=== PATIENT | male | born 1940 | race Hispanic/Latino ===

== ENCOUNTER 2017-04-23 22:08 | Emergency (ER) | payer SELFPAY ==
[~2017-04-23] VITALS: Ht 167.6 cm; Wt 100.0 kg
[2017-04-23] MEDS ORDERED: [UNRECOGNIZED DRUG - OTHER] PO (22:33)
[2017-04-23] MEDS ORDERED: PROTONIX40 M2 PO (22:33)
[2017-04-23] MEDS ORDERED: DUTASTERIDE PO (22:33)
[2017-04-23] MEDS ORDERED: CIPRO XR1000 MG PO (22:34)
[2017-04-23] MEDS ORDERED: ATROVENT H17 MCG/ACT (22:35)
[2017-04-23] MEDS ORDERED: AVAPRO300 MG PO (22:36)
[2017-04-23] MEDS ORDERED: AMLODIPINE5 MG PO (22:37)
[2017-04-23 23:41] LABS: HEMATOCRIT 40.8 % (39.0-50.0); HEMOGLOBIN 14.4 g/dl (14.0-18.0); IMMATURE GRANULOCYTES 0.9 % (0.0-1.0); MEAN CELL VOLUME 86.8 fL CALC (80.0-100.0); MEAN CORPUSCULAR HGB 30.6 pG CALC (26.0-32.0); MEAN CORPUSCULAR HGB CONC 35.3 g/L CALC (32.0-36.0); NEUT# 7.54 thou/uL (1.82-7.42); RED BLOOD COUNT 4.7 mill/uL (4.70-6.10); RED CELL DISTRI WIDTH 12.9 % (11.5-15.5)
[2017-04-23 23:48] LABS: ALBUMIN 4.7 g/dL (3.2-5.0); ALKALINE PHOSPHATASE 82 u/l (38-126); BILIRUBIN, TOTAL 0.8 mg/dL (0.0-1.4); BUN 31 mg/dL (8-23); BUN/CREATININE RATIO 18 (12-20 (CALC)); CALCIUM 9.8 mg/dL (8.4-10.2); CARBON DIOXIDE 15 mmol/l (22-30); CHLORIDE 89 mmol/l (95-108); CREATININE 1.7 mg/dL (0.7-1.3); GFR 39 ML/MIN (>=60 (CALC)); GFR FOR AFR.AMER. 47 ML/MIN (>=60 (CALC)); GLUCOSE 212 mg/dL (82-115); SGOT/AST 27 u/l (19-48); SGPT/ALT 28 u/l (11-66); TOTAL PROTEIN 7.8 g/dL (6.3-8.2)
[2017-04-23 23:54] LABS: ANION GAP 20 (6-22 (CALC)); POTASSIUM 7.5 mmol/l (3.5-5.1); SODIUM 116 mmol/l (137-146)
[2017-04-24] LABS: MYOGLOBIN 76 ng/mL (0 - 121)
[2017-04-24 00:40] LABS: URINE BILIRUBIN - DIPSTICK NEGATIVE (NEGATIVE); URINE BLOOD DIPSTICK LARGE (NEGATIVE); URINE CLARITY CLEAR; URINE COLOR YELLOW; URINE GLUCOSE - DIPSTICK NEGATIVE (NEGATIVE); URINE KETONE NEGATIVE (NEGATIVE); URINE PH 5.5 (4.5-8.0); URINE PROTEIN - DIPSTICK 100 mg/dL (NEG-TRACE); URINE SPECIFIC GRAVITY >=1.030; URINE UROBILINOGEN - DIPSTICK 0.2 E.U./dL (0.2)
[2017-04-24 00:42] LABS: URINE BACTERIA MODERATE hpf; URINE LEUK ESTERASE MODERATE (NEGATIVE); URINE NITRITE - DIPSTICK POSITIVE (Negative); URINE RBC TNTC RBC/hpf (0-5); URINE WBC 50-100 WBC/hpf (0-5)
[2017-04-24 02:01] VITALS: BP 136/63
== END 2017-04-24 02:30 | disposition short-term general hospital (02) | DRG 690 ==
LOC: ED 22:08
PROVIDERS: Emergency Medicine
DX: N39.0 Urinary tract infection, site not specified (principal); E87.1 Hypo-osmolality and hyponatremia; E87.5 Hyperkalemia; E87.8 Other disorders of electrolyte and fluid balance, not elsewhere classified; R10.33 Periumbilical pain; R06.02 Shortness of breath

== ENCOUNTER 2017-10-14 09:15 | Emergency (ER) | payer SELFPAY ==
[~2017-10-14] VITALS: Ht 167.6 cm; Wt 80.0 kg
[~2017-10-14 09:15] MED LIST: AMLODIPINE5 MG PO; ATROVENT H17 MCG/ACT; AVAPRO300 MG PO; CIPRO XR1000 MG PO; DUTASTERIDE PO; PROTONIX40 M2 PO; [UNRECOGNIZED DRUG - OTHER] PO
[2017-10-14 10:16] LABS: HEMATOCRIT 43.4 % (39.0-50.0); HEMOGLOBIN 14.3 g/dl (14.0-18.0); IMMATURE GRANULOCYTES 0.4 % (0.0-1.0); MEAN CELL VOLUME 85.1 fL CALC (80.0-100.0); MEAN CORPUSCULAR HGB CONC 32.9 g/L CALC (32.0-36.0); NEUT# 4.88 thou/uL (1.82-7.42); RED BLOOD COUNT 5.1 mill/uL (4.70-6.10); RED CELL DISTRI WIDTH 13.6 % (11.5-15.5)
[2017-10-14 10:38] LABS: ALBUMIN 3.9 g/dL (3.2-5.0); ALKALINE PHOSPHATASE 82 u/l (38-126); ANION GAP 15 (6-22 (CALC)); BILIRUBIN, TOTAL 0.7 mg/dL (0.0-1.4); BUN 12 mg/dL (8-23); BUN/CREATININE RATIO 10 (12-20 (CALC)); CALCIUM 9.3 mg/dL (8.4-10.2); CARBON DIOXIDE 25 mmol/l (22-30); CHLORIDE 105 mmol/l (95-108); CREATININE 1.2 mg/dL (0.7-1.3); GFR 59 ML/MIN (>=60 (CALC)); GFR FOR AFR.AMER. > 60 ML/MIN (>=60 (CALC)); GLUCOSE 274 mg/dL (82-115); POTASSIUM 4.5 mmol/l (3.5-5.1); SGOT/AST 16 u/l (19-48); SGPT/ALT 25 u/l (11-66); SODIUM 140 mmol/l (137-146); TOTAL PROTEIN 6.7 g/dL (6.3-8.2)
[2017-10-14 10:46] LABS: URINE BILIRUBIN - DIPSTICK NEGATIVE (NEGATIVE); URINE BLOOD DIPSTICK NEGATIVE (NEGATIVE); URINE CLARITY CLEAR; URINE COLOR YELLOW; URINE GLUCOSE - DIPSTICK 500 mg/dL (NEGATIVE); URINE KETONE NEGATIVE (NEGATIVE); URINE LEUK ESTERASE NEGATIVE (NEGATIVE); URINE NITRITE - DIPSTICK NEGATIVE (Negative); URINE PH 6.5 (4.5-8.0); URINE PROTEIN - DIPSTICK NEGATIVE (NEG-TRACE); URINE SPECIFIC GRAVITY <=1.005; URINE UROBILINOGEN - DIPSTICK 0.2 E.U./dL (0.2)
[2017-10-14] MEDS ORDERED: VENTOLIN HFA IN (10:55)
[2017-10-14] MEDS ORDERED: FINASTERIDE5 MG PO (10:59)
[2017-10-14] MEDS ORDERED: PROZAC10 MG PO (11:00)
[2017-10-14] MEDS ORDERED: LASIX 20 MG20 MG/TAB PO (11:00)
[2017-10-14] MEDS ORDERED: MIRTAZAPINE15 MG PO (11:01)
[2017-10-14] MEDS ORDERED: NOVOLIN N100 UNIT/1 SC (11:02)
[2017-10-14] MEDS ORDERED: SYMBICORT1 AE1 IN (11:03)
[2017-10-14] MEDS ORDERED: PROAIR HFA IN (11:03)
[2017-10-14] MEDS ORDERED: LIPITOR20 MG PO (11:04)
[2017-10-14] MEDS ORDERED: TAMSULOSIN0.4 MG PO (11:04)
[2017-10-14 11:13] VITALS: BP 198/86
== END 2017-10-14 11:13 | disposition home or self-care (01) | DRG 93 ==
LOC: ED 09:15
PROVIDERS: Emergency Medicine
DX: R20.0 Anesthesia of skin (principal)

== ENCOUNTER 2018-06-15 14:58 | Inpatient (IN) | payer OTHER ==
[~2018-06-15] VITALS: Ht 167.6 cm; Wt 101.3 kg
[~2018-06-15 14:58] MED LIST changes: +FINASTERIDE5 MG PO; +LASIX 20 MG20 MG/TAB PO; +LIPITOR20 MG PO; +MIRTAZAPINE15 MG PO; +NOVOLIN N100 UNIT/1 SC; +PROAIR HFA IN; +PROZAC10 MG PO; +SYMBICORT1 AE1 IN; +TAMSULOSIN0.4 MG PO; +VENTOLIN HFA IN
[2018-06-15 15:56] LABS: HEMOGLOBIN 14.8 g/dl (14.0-18.0); IMMATURE GRANULOCYTES 0.4 % (0.0-5.0); MEAN CELL VOLUME 83.2 fL CALC (80.0-100.0); MEAN CORPUSCULAR HGB 28.6 pG CALC (26.0-32.0); MEAN CORPUSCULAR HGB CONC 34.4 g/L CALC (32.0-36.0); NEUT# 5.66 thou/uL (1.82-7.42); RED BLOOD COUNT 5.17 mill/uL (4.70-6.10); RED CELL DISTRI WIDTH 14.6 % (11.5-15.5)
[2018-06-15 16:10] LABS: ALBUMIN 4.2 g/dL (3.2-5.0); ALKALINE PHOSPHATASE 101 u/l (38-126); BILIRUBIN, TOTAL 0.4 mg/dL (0.0-1.4); BUN 12 mg/dL (8-23); BUN/CREATININE RATIO 10 (12-20 (CALC)); CARBON DIOXIDE 19 mmol/l (22-30); CHLORIDE 97 mmol/l (95-108); CREATININE 1.1 mg/dL (0.7-1.3); GFR > 60 ML/MIN (>=60 (CALC)); GFR FOR AFR.AMER. > 60 ML/MIN (>=60 (CALC)); POTASSIUM 4.3 mmol/l (3.5-5.1); SGPT/ALT 30 u/l (11-66); TOTAL PROTEIN 7.6 g/dL (6.3-8.2)
[2018-06-15 16:24] LABS: ANION GAP 18 (6-22 (CALC)); SGOT/AST 31 u/l (19-48); SODIUM 130 mmol/l (137-146)
[2018-06-15 17:42] VITALS: BP 133/79
[2018-06-15 19:18] VITALS: BP 129/71
[2018-06-15 22:13] VITALS: BP 135/80
[2018-06-15 23:15] VITALS: BP 160/84
[2018-06-15 23:30] VITALS: BP 156/79
[2018-06-15 23:45] VITALS: BP 166/89
[2018-06-16] VITALS (18 sets, daily range): BP systolic 93–143; BP diastolic 54–88
[2018-06-16 05:09] LABS: HEMATOCRIT 44.3 % (39.0-50.0); HEMOGLOBIN 15.2 g/dl (14.0-18.0); MEAN CELL VOLUME 83.3 fL CALC (80.0-100.0); MEAN CORPUSCULAR HGB 28.6 pG CALC (26.0-32.0); MEAN CORPUSCULAR HGB CONC 34.3 g/L CALC (32.0-36.0); RED BLOOD COUNT 5.32 mill/uL (4.70-6.10); RED CELL DISTRI WIDTH 14.6 % (11.5-15.5)
[2018-06-16 05:18] LABS: ANION GAP 13 (6-22 (CALC)); BUN 12 mg/dL (8-23); BUN/CREATININE RATIO 11 (12-20 (CALC)); CARBON DIOXIDE 21 mmol/l (22-30); CHLORIDE 102 mmol/l (95-108); CREATININE 1.2 mg/dL (0.7-1.3); GFR 58 ML/MIN (>=60 (CALC)); GFR FOR AFR.AMER. > 60 ML/MIN (>=60 (CALC)); SODIUM 132 mmol/l (137-146)
[2018-06-16 09:19] LABS: CHOLESTEROL HDL RATIO 4.8 (<4.4 (CALC))
[2018-06-16 20:44] LABS: URINE BILIRUBIN - DIPSTICK NEGATIVE (NEGATIVE); URINE BLOOD DIPSTICK NEGATIVE (NEGATIVE); URINE COLOR YELLOW; URINE GLUCOSE - DIPSTICK >=1000 mg/dL (NEGATIVE); URINE KETONE NEGATIVE (NEGATIVE); URINE LEUK ESTERASE NEGATIVE (NEGATIVE); URINE NITRITE - DIPSTICK NEGATIVE (Negative); URINE PROTEIN - DIPSTICK NEGATIVE (NEG-TRACE); URINE UROBILINOGEN - DIPSTICK 0.2 E.U./dL (0.2)
[2018-06-16 20:52] LABS: URINE CLARITY CLEAR
[2018-06-17] VITALS (12 sets, daily range): BP systolic 106–170; BP diastolic 43–68
[2018-06-17 05:20] LABS: HEMATOCRIT 40.8 % (39.0-50.0); HEMOGLOBIN 14.2 g/dl (14.0-18.0); IMMATURE GRANULOCYTES 0.6 % (0.0-5.0); MEAN CELL VOLUME 82.3 fL CALC (80.0-100.0); MEAN CORPUSCULAR HGB 28.6 pG CALC (26.0-32.0); MEAN CORPUSCULAR HGB CONC 34.8 g/L CALC (32.0-36.0); NEUT# 7.87 thou/uL (1.82-7.42); RED BLOOD COUNT 4.96 mill/uL (4.70-6.10); RED CELL DISTRI WIDTH 14.5 % (11.5-15.5)
[2018-06-17 05:31] LABS: ANION GAP 16 (6-22 (CALC)); BUN 23 mg/dL (8-23); BUN/CREATININE RATIO 17 (12-20 (CALC)); CARBON DIOXIDE 19 mmol/l (22-30); CHLORIDE 97 mmol/l (95-108); CREATININE 1.3 mg/dL (0.7-1.3); GFR 53 ML/MIN (>=60 (CALC)); GFR FOR AFR.AMER. > 60 ML/MIN (>=60 (CALC)); SODIUM 127 mmol/l (137-146)
[2018-06-17 05:41] LABS: POTASSIUM 5.2 mmol/l (3.5-5.1)
[2018-06-18] VITALS (10 sets, daily range): BP systolic 106–182; BP diastolic 50–97
[2018-06-18 05:18] LABS: HEMATOCRIT 41.7 % (39.0-50.0); HEMOGLOBIN 14.5 g/dl (14.0-18.0); MEAN CELL VOLUME 82.7 fL CALC (80.0-100.0); MEAN CORPUSCULAR HGB 28.8 pG CALC (26.0-32.0); MEAN CORPUSCULAR HGB CONC 34.8 g/L CALC (32.0-36.0); RED BLOOD COUNT 5.04 mill/uL (4.70-6.10); RED CELL DISTRI WIDTH 14.5 % (11.5-15.5)
[2018-06-18 05:33] LABS: ANION GAP 17 (6-22 (CALC)); BUN 29 mg/dL (8-23); BUN/CREATININE RATIO 22 (12-20 (CALC)); CARBON DIOXIDE 19 mmol/l (22-30); CHLORIDE 96 mmol/l (95-108); CREATININE 1.3 mg/dL (0.7-1.3); GFR 53 ML/MIN (>=60 (CALC)); GFR FOR AFR.AMER. > 60 ML/MIN (>=60 (CALC)); SODIUM 127 mmol/l (137-146)
[2018-06-18 05:35] LABS: POTASSIUM 5.4 mmol/l (3.5-5.1)
[2018-06-19] VITALS (10 sets, daily range): BP systolic 130–161; BP diastolic 67–90
[2018-06-19 05:45] LABS: HEMATOCRIT 42.1 % (39.0-50.0); HEMOGLOBIN 14.8 g/dl (14.0-18.0); MEAN CELL VOLUME 83.4 fL CALC (80.0-100.0); MEAN CORPUSCULAR HGB 29.3 pG CALC (26.0-32.0); MEAN CORPUSCULAR HGB CONC 35.2 g/L CALC (32.0-36.0); RED BLOOD COUNT 5.05 mill/uL (4.70-6.10); RED CELL DISTRI WIDTH 14.6 % (11.5-15.5)
[2018-06-19 06:03] LABS: ANION GAP 13 (6-22 (CALC)); BUN 31 mg/dL (8-23); BUN/CREATININE RATIO 24 (12-20 (CALC)); CARBON DIOXIDE 23 mmol/l (22-30); CHLORIDE 101 mmol/l (95-108); CREATININE 1.3 mg/dL (0.7-1.3); GFR 53 ML/MIN (>=60 (CALC)); GFR FOR AFR.AMER. > 60 ML/MIN (>=60 (CALC)); POTASSIUM 4.9 mmol/l (3.5-5.1); SODIUM 133 mmol/l (137-146)
[2018-06-19 06:05] LABS: MAGNESIUM 2.3 mg/dL (1.6-2.3)
[2018-06-19 13:31] LABS: PROTHROMBIN TIME 10.8 SECONDS (9.0-12.5)
[2018-06-20] VITALS (18 sets, daily range): BP systolic 113–158; BP diastolic 49–86
[2018-06-20 05:16] LABS: HEMATOCRIT 44.7 % (39.0-50.0); HEMOGLOBIN 15.1 g/dl (14.0-18.0); IMMATURE GRANULOCYTES 1.4 % (0.0-5.0); MEAN CELL VOLUME 84.7 fL CALC (80.0-100.0); MEAN CORPUSCULAR HGB 28.6 pG CALC (26.0-32.0); MEAN CORPUSCULAR HGB CONC 33.8 g/L CALC (32.0-36.0); NEUT# 10.06 thou/uL (1.82-7.42); RED BLOOD COUNT 5.28 mill/uL (4.70-6.10); RED CELL DISTRI WIDTH 14.8 % (11.5-15.5)
[2018-06-20 05:29] LABS: PROTHROMBIN TIME 11.6 SECONDS (9.0-12.5)
[2018-06-20 05:35] LABS: ALBUMIN 3.9 g/dL (3.2-5.0); CREATININE 1.4 mg/dL (0.7-1.3); POTASSIUM 4.8 mmol/l (3.5-5.1)
[2018-06-21] VITALS (23 sets, daily range): BP systolic 101–169; BP diastolic 46–99
[2018-06-21 04:57] LABS: PROTHROMBIN TIME 14.9 SECONDS (9.0-12.5)
[2018-06-21 06:22] LABS: INTERNATIONAL NORMALIZED RATIO 1.3 RATIO (0.7-1.3)
[2018-06-21 06:53] LABS: TSH, 3RD GENERATION 0.08 uIU/mL (0.47 - 4.68)
[2018-06-22] VITALS (19 sets, daily range): BP systolic 103–176; BP diastolic 41–92
[2018-06-22 05:42] LABS: PROTHROMBIN TIME 26.8 SECONDS (9.0-12.5)
[2018-06-22 05:43] LABS: INTERNATIONAL NORMALIZED RATIO 2.4 RATIO (0.7-1.3)
[2018-06-23] VITALS (21 sets, daily range): BP systolic 101–189; BP diastolic 50–92
[2018-06-23 05:54] LABS: HEMATOCRIT 45.5 % (39.0-50.0); HEMOGLOBIN 15.7 g/dl (14.0-18.0); MEAN CELL VOLUME 83.2 fL CALC (80.0-100.0); MEAN CORPUSCULAR HGB 28.7 pG CALC (26.0-32.0); MEAN CORPUSCULAR HGB CONC 34.5 g/L CALC (32.0-36.0); RED BLOOD COUNT 5.47 mill/uL (4.70-6.10); RED CELL DISTRI WIDTH 14.4 % (11.5-15.5)
[2018-06-23 05:56] LABS: INTERNATIONAL NORMALIZED RATIO 2.2 RATIO (0.7-1.3); PROTHROMBIN TIME 24.7 SECONDS (9.0-12.5)
[2018-06-23 06:09] LABS: BUN 29 mg/dL (8-23); BUN/CREATININE RATIO 22 (12-20 (CALC)); CARBON DIOXIDE 25 mmol/l (22-30); CHLORIDE 102 mmol/l (95-108); CREATININE 1.3 mg/dL (0.7-1.3); GFR 53 ML/MIN (>=60 (CALC)); GFR FOR AFR.AMER. > 60 ML/MIN (>=60 (CALC)); MAGNESIUM 2.3 mg/dL (1.6-2.3); SODIUM 135 mmol/l (137-146)
[2018-06-23 06:21] LABS: ANION GAP 13 (6-22 (CALC)); POTASSIUM 5.2 mmol/l (3.5-5.1)
[2018-06-24] VITALS (10 sets, daily range): BP systolic 109–160; BP diastolic 42–77
[2018-06-24 05:30] LABS: HEMATOCRIT 45.8 % (39.0-50.0); HEMOGLOBIN 15.7 g/dl (14.0-18.0); MEAN CELL VOLUME 82.8 fL CALC (80.0-100.0); MEAN CORPUSCULAR HGB 28.4 pG CALC (26.0-32.0); MEAN CORPUSCULAR HGB CONC 34.3 g/L CALC (32.0-36.0); RED BLOOD COUNT 5.53 mill/uL (4.70-6.10); RED CELL DISTRI WIDTH 14.8 % (11.5-15.5)
[2018-06-24 05:39] LABS: CREATININE 1.4 mg/dL (0.7-1.3); POTASSIUM 4.3 mmol/l (3.5-5.1)
[2018-06-24 10:31] LABS: INTERNATIONAL NORMALIZED RATIO 1.8 RATIO (0.7-1.3); PROTHROMBIN TIME 20.6 SECONDS (9.0-12.5)
[2018-06-25] VITALS (10 sets, daily range): BP systolic 104–150; BP diastolic 49–71
[2018-06-25 05:21] LABS: INTERNATIONAL NORMALIZED RATIO 2.1 RATIO (0.7-1.3); PROTHROMBIN TIME 23.5 SECONDS (9.0-12.5)
[2018-06-25 05:25] LABS: CREATININE 1.5 mg/dL (0.7-1.3); POTASSIUM 4.2 mmol/l (3.5-5.1)
[2018-06-25] MEDS ORDERED: PREDNISONE10 MG PO (17:27)
[2018-06-25] MEDS ORDERED: LOPRESSOR25 MG PO (17:27)
[2018-06-25] MEDS ORDERED: IPRATROPIU0.5 MG/3 M IN (17:27)
[2018-06-25] MEDS ORDERED: FINASTERIDE5 MG PO (17:27)
[2018-06-25] MEDS ORDERED: NOVOLIN N100 UNIT/1 SC (17:27)
[2018-06-25] MEDS ORDERED: MIRTAZAPINE15 MG PO (17:27)
[2018-06-25] MEDS ORDERED: LASIX 20 MG TAB20 MG PO (17:27)
[2018-06-25] MEDS ORDERED: TAMSULOSIN0.4 MG PO (17:27)
[2018-06-25] MEDS ORDERED: VENTOLIN HFA IN (17:27)
[2018-06-25] MEDS ORDERED: COUMADIN3 MG PO (17:27)
[2018-06-25] MEDS ORDERED: SYMBICORT1 AE1 IN (17:27)
[2018-06-25] MEDS ORDERED: LIPITOR20 MG PO (17:27)
[2018-06-25] MEDS ORDERED: CORDARONE/200 MG/TAB PO (17:27)
[2018-06-25] MEDS ORDERED: PROTONIX40 M2 PO (17:27)
== END 2018-06-25 19:30 | disposition home or self-care (01) | DRG 191 ==
LOC: ED 14:58 → ED-I 16:18 → ED 16:40 → MS2 16:41 → ICU 22:57 → MS2 06-18 13:09 → ICU 06-19 18:25
PROVIDERS: Emergency Medicine; Internal Medicine Nephrology; Nurse Practitioner; Nurse Practitioner Family; ADMIT Internal Medicine; ATTEND Internal Medicine
DX: J44.1 Chronic obstructive pulmonary disease with (acute) exacerbation (principal); E87.1 Hypo-osmolality and hyponatremia; I47.1 Supraventricular tachycardia; I16.0 Hypertensive urgency; I48.91 Unspecified atrial fibrillation; K56.41 Fecal impaction; K21.9 Gastro-esophageal reflux disease without esophagitis; N40.0 Benign prostatic hyperplasia without lower urinary tract symptoms; E78.5 Hyperlipidemia, unspecified; E11.22 Type 2 diabetes mellitus with diabetic chronic kidney disease; I12.9 Hypertensive chronic kidney disease with stage 1 through stage 4 chronic kidney disease, or unspecified chronic kidney disease; N18.2 Chronic kidney disease, stage 2 (mild); E66.9 Obesity, unspecified; Z68.36 Body mass index [BMI] 36.0-36.9, adult; Z86.73 Personal history of transient ischemic attack (TIA), and cerebral infarction without residual deficits; Z87.891 Personal history of nicotine dependence; Z85.46 Personal history of malignant neoplasm of prostate; E87.5 Hyperkalemia; Z79.4 Long term (current) use of insulin
CPT/HCPCS: J0282; J1650

== ENCOUNTER 2018-06-30 00:25 | Emergency (ER) | payer SELFPAY ==
[~2018-06-30] VITALS: Ht 167.6 cm; Wt 103.6 kg
[~2018-06-30 00:25] MED LIST changes: +CORDARONE/200 MG/TAB PO; +COUMADIN3 MG PO; +IPRATROPIU0.5 MG/3 M IN; +LASIX 20 MG TAB20 MG PO; +LOPRESSOR25 MG PO; +PREDNISONE10 MG PO
[2018-06-30 01:11] LABS: MEAN CELL VOLUME 84.8 fL CALC (80.0-100.0); MEAN CORPUSCULAR HGB 28.9 pG CALC (26.0-32.0); NEUT# 11.02 thou/uL (1.82-7.42); RED BLOOD COUNT 4.61 mill/uL (4.70-6.10); RED CELL DISTRI WIDTH 15.4 % (11.5-15.5)
[2018-06-30 01:13] LABS: HEMATOCRIT 39.1 % (39.0-50.0); HEMOGLOBIN 13.3 g/dl (14.0-18.0)
[2018-06-30 01:23] LABS: ALBUMIN 3.5 g/dL (3.2-5.0); BILIRUBIN, TOTAL 0.4 mg/dL (0.0-1.4); CREATININE 1.7 mg/dL (0.7-1.3); TOTAL PROTEIN 6.1 g/dL (6.3-8.2)
[2018-06-30 01:24] LABS: POTASSIUM 5.5 mmol/l (3.5-5.1)
[2018-06-30 01:50] VITALS: BP 155/70
== END 2018-06-30 01:50 | disposition home or self-care (01) | DRG 305 ==
LOC: ED 00:25
PROVIDERS: Emergency Medicine
DX: I10 Essential (primary) hypertension (principal); E11.9 Type 2 diabetes mellitus without complications; J45.909 Unspecified asthma, uncomplicated; Z85.46 Personal history of malignant neoplasm of prostate

== ENCOUNTER 2018-07-01 22:01 | Observation (INO) | payer MEDICAID ==
[~2018-07-01] VITALS: Ht 167.6 cm; Wt 103.2 kg
[2018-07-01 22:42] LABS: HEMATOCRIT 42.1 % (39.0-50.0); HEMOGLOBIN 14.6 g/dl (14.0-18.0); IMMATURE GRANULOCYTES 2.7 % (0.0-5.0); MEAN CELL VOLUME 82.7 fL CALC (80.0-100.0); MEAN CORPUSCULAR HGB 28.7 pG CALC (26.0-32.0); MEAN CORPUSCULAR HGB CONC 34.7 g/L CALC (32.0-36.0); NEUT# 10.38 thou/uL (1.82-7.42); RED BLOOD COUNT 5.09 mill/uL (4.70-6.10)
--- NOTE | 2018-07-01 22:42 | NUR ---
DR UNGER NOTIFIED OF BP. HOLD CATAPRES FOR NOW. PT TO XRAY VIA W/C.
[2018-07-01 22:58] LABS: ALBUMIN 3.9 g/dL (3.2-5.0); ALKALINE PHOSPHATASE 86 u/l (38-126); ANION GAP 19 (6-22 (CALC)); BILIRUBIN, TOTAL 0.5 mg/dL (0.0-1.4); BUN 26 mg/dL (8-23); BUN/CREATININE RATIO 19 (12-20 (CALC)); CARBON DIOXIDE 22 mmol/l (22-30); CHLORIDE 94 mmol/l (95-108); CREATININE 1.3 mg/dL (0.7-1.3); GFR 53 ML/MIN (>=60 (CALC)); GFR FOR AFR.AMER. > 60 ML/MIN (>=60 (CALC)); SGOT/AST 23 u/l (19-48); SGPT/ALT 44 u/l (11-66); SODIUM 130 mmol/l (137-146); TOTAL PROTEIN 6.9 g/dL (6.3-8.2)
[2018-07-01 23:00] LABS: POTASSIUM 5.2 mmol/l (3.5-5.1)
[2018-07-01 23:10] LABS: MYOGLOBIN 74 ng/mL (0 - 121)
[2018-07-01 23:22] LABS: INTERNATIONAL NORMALIZED RATIO 2.4 RATIO (0.7-1.3); PROTHROMBIN TIME 26.8 SECONDS (9.0-12.5)
[2018-07-02] VITALS (7 sets, daily range): BP systolic 113–192; BP diastolic 43–81
--- NOTE | 2018-07-02 | NUR ---
DR TO BEDSIDE TO ADVISE OF PLAN. FAMILY AT BEDSIDE. PT RESTING. NAD. VSS.
--- NOTE | 2018-07-02 01:33 | NUR ---
FAMILY HOME. REPORT TO LA MAYORGA.
--- NOTE | 2018-07-02 01:38 | NUR ---
TO FLOOR WITHOUT INCIDENT. FAMILY BACK TO GO TO FLOOR WITH PT. VSS. CLOUD.
--- NOTE | 2018-07-02 01:40 | NUR ---
RECEIVED FROM ER VIA STRETCHER ACCOMPANIED BY ER NURSE, AMBULATING TO STANDING SCALE THEN TO BED WITH STANDBY ASSISTANCE, STEADY GAIT. A/O X3, RESPIRATIONS EVEN AND UNLABORED ON RA, LUNG SOUNDS CLEAR WITH CRACKLES IN THE BASES BILAT. B/P 192/81, HR 65, CATAPRESS 0.2MG PO PROVIDED AT 0201 PER JAN. PT'S DAUGHTERS AT BED SIDE, STATE THEY BROUGHT PT TO ER DUE TO SEVEN BLOOD PRESSURE AND SOB, PT ADMITS TO FEELING WEAK AND SHAKY PRIOR TO ARRIVING TO ER, DENIES FEELING WEAK OR SHAKY AT THIS TIME. TELE IN PLACE READING SR PER ER. ORIENTED TO BED CONTROLS AND CALL LIGHT. WILL CONTINUE TO MONITOR.
--- NOTE | 2018-07-02 03:30 | NUR ---
RESTING ON LEFT SIDE WITH EYES CLOSED, RESPIRITIONS EVEN AND UNLABORED. B/P 113/43, HR 56. FAMILY AT BED SIDE. CALL LIGHT IN RECH.
--- NOTE | 2018-07-02 07:00 | NUR ---
BEDSIDE REPORT RECEIVED BY EULALIO. PT IS SLEEPING ON HIS RIGHT SIDE WITH NO S/S OF DISTRESS NOTED. DAUGHTER IN ROOM AND CALL LIGHT IN REACH.
--- NOTE | 2018-07-02 08:00 | NUR ---
ASSESSMENT DONE. TELE IN PLACE . LUNG SOUND CLEAR/CRACKLES. PT DENIES PAIN. PT STATED THAT HE JUST FEELS TIRED. PT IS A&O X3. #20 RAC THAT APPEAR HEALTHY. PT DENIES NEEDS AT THIS TIME. SAFETY PRECAUTIONS REINFORCED AND CALL LIGHT IN REACH.
--- NOTE | 2018-07-02 12:10 | NUR ---
PT IS SITTING IN THE SIDE OF THE BED EATING LUNCH. PT DENIES NEEDS AT THIS TIME. DAUGHTER IN ROOM. CALL LIGHT IN REACH.
--- NOTE | 2018-07-02 16:00 | NUR ---
PT IS SITTING IN THE SIDE OF THE BED VISITING WITH DAUGHTER IN ROOM. PT DENIES PAIN AT THIS TIME. PT DENIES NEEDS AT THIS TIME. CALL LIGHT IN REACH.
--- NOTE | 2018-07-02 19:00 | NUR ---
RECEIVED CHANGE OF SHIFT REPORT FROM LA NATHAN. PT ALERT AND ORIENTED X 3 AND SITTING UP IN BED. FAMILY AT BEDSIDE. DENIES PAIN AND DISCOMFORT. NO APPARENT ACUTE DISTRESS NOTED AT THIS TIME. WILL CONTINUE TO MONITOR.
--- NOTE | 2018-07-03 | NUR ---
PT RESTING QUIETLY WITH EYES CLOSED AND APPEARS TO BE ASLEEP. RESP EVEN AND NON-LABORED. NO APPARENT ACUTE DISTRESS NOTED. WILL CONTINUE TO MONITOR.
--- NOTE | 2018-07-03 01:00 | NUR ---
PATIENT CALLED AND STATED THAT HE'S FEELING "SHAKY". CHECKED BLOOD SUGAR LEVEL BY FINGERSTICK. RESULT WAS 61 MG/DL. OJ, KIERSTEN CRACKERS, AND MILK PROVIDED. WILL CONTINUE TO MONITOR/
--- NOTE | 2018-07-03 04:00 | NUR ---
PATIENT SLEPT WELL DURING THE NIGHT. NO APPARENT ACUTE CHANGES NOTED IN PT'S CONDITION.
[2018-07-03 05:19] LABS: HEMATOCRIT 39.6 % (39.0-50.0); HEMOGLOBIN 13.8 g/dl (14.0-18.0); MEAN CELL VOLUME 82.8 fL CALC (80.0-100.0); MEAN CORPUSCULAR HGB 28.9 pG CALC (26.0-32.0); MEAN CORPUSCULAR HGB CONC 34.8 g/L CALC (32.0-36.0); RED BLOOD COUNT 4.78 mill/uL (4.70-6.10); RED CELL DISTRI WIDTH 14.8 % (11.5-15.5)
[2018-07-03 05:38] LABS: ANION GAP 16 (6-22 (CALC)); BUN 26 mg/dL (8-23); BUN/CREATININE RATIO 21 (12-20 (CALC)); CARBON DIOXIDE 21 mmol/l (22-30); CHLORIDE 97 mmol/l (95-108); CREATININE 1.2 mg/dL (0.7-1.3); GFR 58 ML/MIN (>=60 (CALC)); GFR FOR AFR.AMER. > 60 ML/MIN (>=60 (CALC)); MAGNESIUM 1.9 mg/dL (1.6-2.3); SODIUM 130 mmol/l (137-146)
[2018-07-03 05:47] LABS: POTASSIUM 4.1 mmol/l (3.5-5.1)
--- NOTE | 2018-07-03 06:57 | NUR ---
REPORT RECIVED BY JOE. PT IS SLEEPING ON HIS RIGHT SIDE WITH NO S/S OF DISTRESS NOTED. DAUGHTER IN ROOM. CALL LIGHT IN REACH.
[2018-07-03 08:24] LABS: INTERNATIONAL NORMALIZED RATIO 2.2 RATIO (0.7-1.3); PROTHROMBIN TIME 24.8 SECONDS (9.0-12.5)
--- NOTE | 2018-07-03 08:30 | NUR ---
PT STATED THAT HE FEELS SOB O2 OBTAIN READING 94% IN ROOM AIR. ELEVATED PT HEAD OF THE BED. CALLED FOR A NEB TREATMENT. ASSESSMENT DONE. LUNGS SOUND WHEEZES. TELE IN PLACE. PT HAS A NON-PRODUCTIVE COUGH. PT DENIES PAIN AT THIS TIME. #20 RAC THAT APPEAR HEALTHY. DAUGHTER IN ROOM. PT DENIES ANY OTHER NEEDS AT THIS TIME. SAFETY PRECAUTIONS REINFORCED AND CALL LIGHT IN REACH.
[2018-07-03 08:50] VITALS: BP 180/80
--- NOTE | 2018-07-03 10:52 | NUR ---
PT IS SITTING IN THE SIDE OF THE BED. DR. GOINS AT BEDSIDE TO ASSESS PT. NOTIFIED DR. MICHELLE THAT PT BP IS 180/84 AND GIVEN APRESOLINE SEE EMAR. ALSO, THAT PT FELT SOB EARLIER TODAY. STATED WILL REVIEW CHART. DAUGHTER IN ROOM. CALL LIGHT IN REACH.
[2018-07-03 10:54] VITALS: BP 180/84
--- NOTE | 2018-07-03 11:56 | NUR ---
CALLED DR. MICHELLE RE: PT FEELING SOB/WHEEZES. O2 IS 94% AT ROOM AIR. ORDERS RECEIVED.
[2018-07-03 12:41] VITALS: BP 110/42
--- NOTE | 2018-07-03 14:42 | NUR ---
PT IS SITTING IN THE SIDE OF THE BED WITH NO S/S OF DISTRESS NOTED. PT STATED HIS BREATHING IS BETTER. PT DENIES NEEDS AT THIS TIME. CALL LIGHT IN REACH. DAUGHTER IN ROOM.
--- NOTE | 2018-07-03 16:02 | NUR ---
PT IS RESTING IN BED AND DENIES NEEDS AT THIS TIME. TELE IN PLACE. CALL LIGHT IN REACH.
[2018-07-03 16:52] VITALS: BP 168/78
[2018-07-03 19:31] VITALS: BP 155/73
--- NOTE | 2018-07-03 19:50 | NUR ---
PT UP SITTING ON SIDE OF BED. RESP EVEN AND UNLABORED. PT DENIES PAIN. TELE ON. LUNGS CLEAR/DIMINISHED BILAT. ABD SOFT, ACTIVE BOWEL SOUNDS. PEDAL PULSES PALPATED BILAT. IV LFA PATENT; FLUSHED WITHOUT DIFFICULTY. FAMILY AT BEDSIDE. FREQUENT ROUNDS MADE. CALL LIGHT WITHIN REACH.
--- NOTE | 2018-07-04 00:15 | NUR ---
NO DISTRESS NOTED, PT SLEEPING WITH EYES CLOSED. RESP EVEN AND UNLABORED. TELE ON. FAMILY AT BEDSIDE. CALL LIGHT WITHIN REACH.
[2018-07-04 00:30] VITALS: BP 140/65
--- NOTE | 2018-07-04 04:15 | NUR ---
PT SITTING ON SIDE OF BED. PT DENIES PAIN. RESP EVEN AND UNLABORED. ASSESSMENT UNCHANGED. TELE ON. CALL LIGHT WITHIN REACH.
[2018-07-04 04:24] VITALS: BP 165/78
[2018-07-04 05:20] VITALS: BP 149/62
[2018-07-04 05:45] LABS: INTERNATIONAL NORMALIZED RATIO 2.6 RATIO (0.7-1.3); PROTHROMBIN TIME 29.4 SECONDS (9.0-12.5)
[2018-07-04 08:00] VITALS: BP 159/65
--- NOTE | 2018-07-04 09:00 | NUR ---
PT AWAKE, ALERT, ORIENTED X 3. FAMILY AT BEDSIDE MUCH OF THE TIME, HELPFUL IN HIS CARE. LUNGS ARE CLEAR. PT OOB FOR SHOWER THIS AM. MONITOR CONTINUES TO SHOW NORMAL SINUS RHYTHM. NO COMPLAINTS, NO DISTRESS.
[2018-07-04 11:22] VITALS: BP 174/77
[2018-07-04] MEDS ORDERED: DOXYCYCL HYC100 MG PO (13:05)
[2018-07-04] MEDS ORDERED: AMLODIPINE BESYL5 MG PO (13:06)
[2018-07-04] MEDS ORDERED: MEDDOSEPAK PO (13:07)
[2018-07-04] MEDS ORDERED: HYDRALAZINE50 MG PO (13:17)
--- NOTE | 2018-07-04 13:48 | NUR ---
PT HAS BEEN SEEN BY DR MICHELLE TODAY, PLAN IS TO DISCHARGE PT HOME. PT FEELS THAT HE WILL DO WELL THERE, HAS PLENTY OF HELP FROM HIS DAUGHTERS.
--- NOTE | 2018-07-04 14:58 | NUR ---
PT LEAVES [facility] AT THIS TIME VIA WHEELCHAIR TO LOBBY. DAUGHTER ROBERTO RECEIVED DISCHARGE INSTRUCTIONS FOR HER FATHER, VERBALIZED UNDERSTANDING OF SAME. PT LEAVES IN STABLE CONDITION, RXs X 4 IN HAND. PT AWARE OF HOME HEALTH VISIT TOMORROW AND PHONE CALL FRIDAY FROM [facility] FOR FURTHER DISCUSSION OF HOME HEALTH SERVICES.
== END 2018-07-04 15:00 | disposition home health service (06) ==
LOC: ED 22:01 → ED-I 07-02 00:50 → ED 07-02 01:17 → MS2 07-02 01:18
PROVIDERS: Emergency Medicine; Nurse Practitioner Family; ADMIT Internal Medicine; ATTEND Internal Medicine
DX: J44.1 Chronic obstructive pulmonary disease with (acute) exacerbation (principal); J44.0 Chronic obstructive pulmonary disease with (acute) lower respiratory infection; J18.9 Pneumonia, unspecified organism; I16.0 Hypertensive urgency; I11.0 Hypertensive heart disease with heart failure; I50.9 Heart failure, unspecified; E87.1 Hypo-osmolality and hyponatremia; E87.5 Hyperkalemia; I48.0 Paroxysmal atrial fibrillation; E11.9 Type 2 diabetes mellitus without complications; E78.5 Hyperlipidemia, unspecified; Z79.01 Long term (current) use of anticoagulants; Z85.46 Personal history of malignant neoplasm of prostate; Z87.891 Personal history of nicotine dependence
CPT/HCPCS: G0378

== ENCOUNTER 2018-07-09 09:37 | Emergency (ER) | payer SELFPAY ==
[~2018-07-09] VITALS: Ht 167.6 cm; Wt 100.0 kg
[~2018-07-09 09:37] MED LIST changes: +AMLODIPINE BESYL5 MG PO; +DOXYCYCL HYC100 MG PO; +HYDRALAZINE50 MG PO; +MEDDOSEPAK PO
[2018-07-09 10:14] LABS: HEMATOCRIT 41.8 % (39.0-50.0); HEMOGLOBIN 14.5 g/dl (14.0-18.0); IMMATURE GRANULOCYTES 0.6 % (0.0-5.0); MEAN CELL VOLUME 83.9 fL CALC (80.0-100.0); MEAN CORPUSCULAR HGB 29.1 pG CALC (26.0-32.0); MEAN CORPUSCULAR HGB CONC 34.7 g/L CALC (32.0-36.0); NEUT# 11.03 thou/uL (1.82-7.42); RED BLOOD COUNT 4.98 mill/uL (4.70-6.10); RED CELL DISTRI WIDTH 15.6 % (11.5-15.5)
[2018-07-09] MEDS ORDERED: MICRO-K10 MEQ PO (10:19)
[2018-07-09] MEDS ORDERED: FLUOXETINE10 M2 PO (10:19)
[2018-07-09] MEDS ORDERED: VITAMIN B121000 MCG PO (10:20)
[2018-07-09] MEDS ORDERED: VITAMIN D22000 UNIT PO (10:21)
[2018-07-09 10:34] LABS: ALKALINE PHOSPHATASE 69 u/l (38-126); ANION GAP 18 (6-22 (CALC)); BILIRUBIN, TOTAL 0.6 mg/dL (0.0-1.4); BUN 46 mg/dL (8-23); BUN/CREATININE RATIO 27 (12-20 (CALC)); CARBON DIOXIDE 21 mmol/l (22-30); CHLORIDE 99 mmol/l (95-108); CREATININE 1.7 mg/dL (0.7-1.3); GFR 39 ML/MIN (>=60 (CALC)); GFR FOR AFR.AMER. 47 ML/MIN (>=60 (CALC)); POTASSIUM 4.8 mmol/l (3.5-5.1); SGOT/AST 21 u/l (19-48); SGPT/ALT 39 u/l (11-66); SODIUM 133 mmol/l (137-146); TOTAL PROTEIN 6.8 g/dL (6.3-8.2)
[2018-07-09 10:46] LABS: MYOGLOBIN 135 ng/mL (0 - 121)
[2018-07-09 11:42] LABS: URINE BILIRUBIN - DIPSTICK NEGATIVE (NEGATIVE); URINE BLOOD DIPSTICK NEGATIVE (NEGATIVE); URINE CLARITY CLEAR; URINE COLOR YELLOW; URINE GLUCOSE - DIPSTICK NEGATIVE (NEGATIVE); URINE KETONE NEGATIVE (NEGATIVE); URINE LEUK ESTERASE NEGATIVE (NEGATIVE); URINE NITRITE - DIPSTICK NEGATIVE (Negative); URINE PH 5.5 (4.5-8.0); URINE PROTEIN - DIPSTICK NEGATIVE (NEG-TRACE); URINE UROBILINOGEN - DIPSTICK 0.2 E.U./dL (0.2)
[2018-07-09 15:19] VITALS: BP 172/78
== END 2018-07-09 15:19 | disposition short-term general hospital (02) | DRG 192 ==
LOC: ED 09:37
PROVIDERS: Emergency Medicine
DX: J44.1 Chronic obstructive pulmonary disease with (acute) exacerbation (principal); E11.9 Type 2 diabetes mellitus without complications; I10 Essential (primary) hypertension; I48.91 Unspecified atrial fibrillation; Z85.46 Personal history of malignant neoplasm of prostate

== ENCOUNTER 2019-02-02 22:52 | Observation (INO) | payer OTHER ==
[~2019-02-02] VITALS: Ht 167.6 cm; Wt 103.1 kg
[~2019-02-02 22:52] MED LIST changes: +FLUOXETINE10 M2 PO; +MICRO-K10 MEQ PO; +VITAMIN B121000 MCG PO; +VITAMIN D22000 UNIT PO
--- NOTE | 2019-02-02 22:55 | NUR ---
TO TX ROOM VIA W/C
[2019-02-02 23:33] LABS: HEMOGLOBIN 15.1 g/dl (14.0-18.0); IMMATURE GRANULOCYTES 0.4 % (0.0-5.0); MEAN CELL VOLUME 85.6 fL CALC (80.0-100.0); MEAN CORPUSCULAR HGB 27.5 pG CALC (26.0-32.0); MEAN CORPUSCULAR HGB CONC 32.1 g/L CALC (32.0-36.0); NEUT# 5.13 thou/uL (1.82-7.42); RED BLOOD COUNT 5.49 mill/uL (4.70-6.10); RED CELL DISTRI WIDTH 16.7 % (11.5-15.5)
--- NOTE | 2019-02-02 23:47 | NUR ---
BREATHING IMPROVED MORE COMFORTABLE.
[2019-02-02 23:49] LABS: ALBUMIN 4.7 g/dL (3.2-5.0); ANION GAP 18 (6-22 (CALC)); BILIRUBIN, TOTAL 0.6 mg/dL (0.0-1.4); BUN 20 mg/dL (8-23); BUN/CREATININE RATIO 11 (12-20 (CALC)); CARBON DIOXIDE 24 mmol/l (22-30); CHLORIDE 98 mmol/l (95-108); CREATININE 1.7 mg/dL (0.7-1.3); GFR 39 ML/MIN (>=60 (CALC)); GFR FOR AFR.AMER. 47 ML/MIN (>=60 (CALC)); SGOT/AST 30 u/l (19-48); SODIUM 134 mmol/l (137-146)
[2019-02-02 23:51] LABS: ALKALINE PHOSPHATASE 154 u/l (38-126)
[2019-02-03] VITALS (7 sets, daily range): BP systolic 128–187; BP diastolic 63–90
[2019-02-03 00:01] LABS: MYOGLOBIN 100 ng/mL (0 - 121)
[2019-02-03 00:26] LABS: PROTHROMBIN TIME 20.7 SECONDS (9.0-12.5)
[2019-02-03 01:10] LABS: URINE BILIRUBIN - DIPSTICK NEGATIVE (NEGATIVE); URINE BLOOD DIPSTICK NEGATIVE (NEGATIVE); URINE COLOR YELLOW; URINE GLUCOSE - DIPSTICK >=1000 mg/dL (NEGATIVE); URINE KETONE NEGATIVE (NEGATIVE); URINE LEUK ESTERASE NEGATIVE (NEGATIVE); URINE NITRITE - DIPSTICK NEGATIVE (Negative); URINE PROTEIN - DIPSTICK NEGATIVE (NEG-TRACE); URINE SPECIFIC GRAVITY <=1.005; URINE UROBILINOGEN - DIPSTICK 0.2 E.U./dL (0.2)
--- NOTE | 2019-02-03 01:12 | NUR ---
Admission Note Report Given to: LA TRUJILLO Transported by: Wheelchair X Stretcher Transported with: X Nurse Transporter X Patent IV X O2 X Laborer Cheesemaking
--- NOTE | 2019-02-03 01:25 | NUR ---
PT. ARRIVED TO THE FLOOR VIA STRETCHER ACCOMPANIED BY ER NURSE AND DAUGHTER; DAUGHTER TO STAY THE NIGHT; PT. ABLE TO AMBULATE TO BED WITH MINIMAL ASST; ORIENTED ON POC, CALL LIGHT, AND ROOM; VERBALIZES UNDERSTANDING; VS OBTAINED AND INITIAL B/P ELEVATED AT SYSTOLIC 212; WILL REASSESS AFTER PT. RELAXES AND SETTLES DOWN; SPO2 ON RA 95%; APPLIED O2 @2LITERS/MIN PER NC PER ORDER; ADMISSION ASSESSMENT COMPLETED; PT. DENIES ANY PAIN; FRESH WATER AND PO FLUIDS OFFERED; CALL LIGHT IS IN REACH; INSTRUCTED TO CALL FOR ANY AND ALL NEEDS; WILL CONTINUE TO MONITOR.
--- NOTE | 2019-02-03 02:35 | NUR ---
0212- PT'S B/P 187/90; CALLED DR. UNGER AND NOTIFIED HIM OF THIS; ORDER RECEIVED FOR HYDRALAZINE; WILL ADMINISTER WHEN PROFILED; 023- B/P REASSESSED AND NOW IS 164/79 AND HR 71; MEDICATED WITH ORDERED APRESOLINE; WILL CONTINUE TO MONITOR.
--- NOTE | 2019-02-03 05:45 | NUR ---
PT. RESTING IN BED WITH NO DISTRESS NOTED; DENIES NEEDS/PAIN. DAUGHTER REMAINS AT BEDSIDE; PHLEBOTOMY IN AT BEDSIDE OBTAINING LAB DRAW; URINAL EMPTIED; CALL LIGHT IS IN REACH.
--- NOTE | 2019-02-03 08:43 | NUR ---
PT LAYING IN BED WATCHING TV; RESP LABORED ON 02@2L NC; TELE IN PLACE; IV FLUSHED WITHOUT DIFFICULTY; VITALS STABLE; FAMILY MEMBER AT BEDSIDE; SAFETY PRECAUTION REINFORCE; CALL ANTONY IN REACH; URNAL AT BEDSIDE;
--- NOTE | 2019-02-03 11:32 | NUR ---
ASSISTED PT TO RECLINER; VITALS OBTAINED; 02@2L NC; CALL ANTONY AND URINAL IN REACH; DAUGHTER AT BEDSIDE; VOICE NO CONCERNS;
--- NOTE | 2019-02-03 12:44 | NUR ---
DR DANIEL AT BEDSIDE
--- NOTE | 2019-02-03 13:20 | NUR ---
PT GOING DOWN FOR CT ACCOMPANIED BY A VOLUNTEER; 02@2L
--- NOTE | 2019-02-03 13:44 | NUR ---
PT RETURN TO ROOM FROM CT VIA W/C ACCOMPANIED BY A VOLUNTEER; ASSISTED INTO RECLINER; LEGS ELEVATED; ZITHROMAX INFUSING WITHOUT DIFFICULTY; SITE APPEARS HEALTHY; CALL ANTONY IN REACH
--- NOTE | 2019-02-03 20:00 | NUR ---
PT. SITTING UP IN CHAIR WITH FAMILY AT BEDSIDE; NO DISTRESS NOTED; UPDATED ON POC; VSS; ASSESSMENT COMPLETED; DENIES NEEDS/PAIN; O2 INFUSING PER NC PER ORDER; TEDS IN PLACE TO BLE; PO FLUIDS OFFERED; INSTRUCTED TO CALL FOR ANY NEEDS; CALL LIGHT IS IN REACH; WILL CONTINUE TO MONITOR.
--- NOTE | 2019-02-04 00:05 | NUR ---
PT. IS RESTING IN BED WITH FAMILY MEMBER AT BEDSIDE; DENIES NEEDS/PAIN; ENCOURAGED TO CALL FOR ANY NEEDS; CALL LIGHT IS IN REACH; WILL CONTINUE TO MONITOR.
--- NOTE | 2019-02-04 02:30 | NUR ---
PT. RESTING IN BED WITH EYES OPEN; FAMILY AND PT. DENIES NEEDS/PAIN; ENCOURAGED TO CALL FOR ANY NEEDS; CALL LIGHT IS IN REACH.
[2019-02-04 04:07] VITALS: BP 178/90
--- NOTE | 2019-02-04 04:20 | NUR ---
NOTIFIED DR. DANIEL OF PT'S B/P BEING 178/90 MAUALLY WITH NO MEDICATIONS TO BE GIVEN TO TREAT; PER MD WILL ADJUST B/P MEDS THIS AM UPON ROUNDS; NO NEW ORDERS RECEIVED AT THIS TIME.
--- NOTE | 2019-02-04 06:00 | NUR ---
REASSESSED B/P AND NOW 124/59; DENIES NEEDS; CALL LIGHT IS IN REACH.
[2019-02-04 06:01] VITALS: BP 124/59
[2019-02-04 06:32] LABS: HEMATOCRIT 42.4 % (39.0-50.0); HEMOGLOBIN 13.9 g/dl (14.0-18.0); IMMATURE GRANULOCYTES 0.6 % (0.0-5.0); MEAN CELL VOLUME 84.1 fL CALC (80.0-100.0); MEAN CORPUSCULAR HGB 27.6 pG CALC (26.0-32.0); MEAN CORPUSCULAR HGB CONC 32.8 g/L CALC (32.0-36.0); NEUT# 10.24 thou/uL (1.82-7.42); RED BLOOD COUNT 5.04 mill/uL (4.70-6.10); RED CELL DISTRI WIDTH 16.3 % (11.5-15.5)
[2019-02-04 06:46] LABS: INTERNATIONAL NORMALIZED RATIO 2.2 RATIO (0.7-1.3); PROTHROMBIN TIME 22.9 SECONDS (9.0-12.5)
[2019-02-04 06:49] LABS: ALBUMIN 3.8 g/dL (3.2-5.0); BILIRUBIN, TOTAL 0.4 mg/dL (0.0-1.4); MAGNESIUM 1.8 mg/dL (1.6-2.3); POTASSIUM 5.3 mmol/l (3.5-5.1); TOTAL PROTEIN 6.5 g/dL (6.3-8.2)
[2019-02-04 07:18] VITALS: BP 160/73
--- NOTE | 2019-02-04 07:23 | NUR ---
REPORT RECEIVED FROM LA TRUJILLO. PT SUPINE IN BED. DENIES PAIN. REPORTING OF CONCERNS ENCORUAGED. CALL LIGHT REVIEWED AND IN REACH. PLAN OF CARE DISCUSSED. GRANDDAUGHTER ATBEDSIDE TO ASSIST W/ TRANLATION. PT STATES UNDERSTANDING OF INFORM,ATION.
--- NOTE | 2019-02-04 13:00 | NUR ---
DR. DANIEL IN TO SEE PT. PLAN OF CARE UPDATED.
--- NOTE | 2019-02-04 13:04 | NUR ---
PT. LEFT FLOOR VIA WHEELCHAIR ACCOMPANIED BY VOLUNTEER, DESTINATION ECHO.
[2019-02-04 16:00] VITALS: BP 192/78
--- NOTE | 2019-02-04 17:37 | NUR ---
PT ASSISTED TO CHAIR AT BEDSIDE BY FOR DINNER. SOB W/ EXERTION NOTED. DRY COUGH.
--- NOTE | 2019-02-04 19:04 | NUR ---
PT. RESTING IN BED ON RA; NO DISTRESS NOTED; DENIES NEEDS/PAIN; ASSESSMENT COMPLETED; IV SITE PATENT AND SL; URINAL AT BEDSIDE; ENCOURAGED TO CALL FOR ANY NEEDS; CALL LIGHT IS IN REACH.
[2019-02-04 20:26] VITALS: BP 180/79
--- NOTE | 2019-02-04 20:53 | NUR ---
REASSESSED B/P 171/72; MEDICATED WITH ORDERED LOPRESSOR; WILL REASSESS AND CONTINUE TO MONITOR. SNACK PROVIDED; DENIES NEEDS; CALL LIGHT IS IN REACH; WILL CONTINUE TO MONITOR.
--- NOTE | 2019-02-04 22:19 | NUR ---
PT. RESTING IN BED WITH EYES OPEN; FAMILY IN AT BEDSIDE; NO DISTRESS NOTED; DENIES NEEDS/PAIN; ENCOURAGED TO CALL FOR ANY NEEDS; CALL LIGHT IS IN REACH.
[2019-02-04 23:03] VITALS: BP 136/73
--- NOTE | 2019-02-05 02:22 | NUR ---
PT. RESTING IN BED ON RIGHT SIDE WITH EYES CLOSED; AROUSES EASILY; DENIES NEEDS; CALL LIGHT IS IN REACH.
[2019-02-05 03:51] VITALS: BP 183/87
[2019-02-05 05:09] VITALS: BP 127/72
--- NOTE | 2019-02-05 05:10 | NUR ---
REASSESSED B/P 127/72; WILL CONTINUE TO MONITOR; PT. DENIES NEEDS; FAMILY MEMBER REMAINS AT BEDSIDE;
[2019-02-05 05:35] LABS: BILIRUBIN, TOTAL 0.6 mg/dL (0.0-1.4); CREATININE 1.6 mg/dL (0.7-1.3); HEMATOCRIT 45.5 % (39.0-50.0); HEMOGLOBIN 14.9 g/dl (14.0-18.0); IMMATURE GRANULOCYTES 0.7 % (0.0-5.0); MEAN CELL VOLUME 84.3 fL CALC (80.0-100.0); MEAN CORPUSCULAR HGB 27.6 pG CALC (26.0-32.0); MEAN CORPUSCULAR HGB CONC 32.7 g/L CALC (32.0-36.0); NEUT# 6.5 thou/uL (1.82-7.42); POTASSIUM 4.5 mmol/l (3.5-5.1); RED BLOOD COUNT 5.4 mill/uL (4.70-6.10); RED CELL DISTRI WIDTH 16.5 % (11.5-15.5); TOTAL PROTEIN 6.9 g/dL (6.3-8.2)
[2019-02-05 05:49] LABS: INTERNATIONAL NORMALIZED RATIO 2.3 RATIO (0.7-1.3); PROTHROMBIN TIME 23.7 SECONDS (9.0-12.5)
[2019-02-05 07:24] VITALS: BP 165/75
[2019-02-05 07:28] VITALS: BP 165/75
--- NOTE | 2019-02-05 07:30 | NUR ---
PT LAYING IN BED WITH EYES OPEN; RESP EVEN AND UNLBAORED ON ROOM AIR; ASSISTED PT TO THE RECLINER FOR BREAKFAST, UP WITH STEADY GAIT; AM MEDS ADMINISTERED; IV FLUSHED WITHOUT DIFFICULTY; CALL ANTONY IN REACH; DAUGHTER AT BED SIDE; VOICE NO CONCERNS;
--- NOTE | 2019-02-05 10:53 | NUR ---
pt sitting up in recliner; resp even and unlabored on room air; waiting to see the dr; daughter at bedside; call robert in reach.
[2019-02-05] MEDS ORDERED: BUMETANIDE1 MG PO (13:01)
[2019-02-05] MEDS ORDERED: DOXYCYCL HYC100 MG PO (13:02)
[2019-02-05] MEDS ORDERED: MEDDOSEPAK PO (13:02)
--- NOTE | 2019-02-05 15:36 | NUR ---
PT SITTING UP IN CHAIR WAITING TO SEE THE ENVIRONMENTAL COMPLIANCE INSPECTOR BEFORE BEING D/C; NO S/S OF DISTRESS NOTED;
--- NOTE | 2019-02-05 16:18 | NUR ---
D/C INSTRUCTIONS GIVEN TO PT AND WOLOF SPEAKING FAMILIES; VERBALIZE UNDERSTANDING; IV REMOVED, CATH INTACT; LEAVING VIA W/C ACCOMPANIED BY FAMILIES AND SENIOR PHYSICAL THERAPIST, IN STABLE CONDITION;
== END 2019-02-05 16:25 | disposition home or self-care (01) ==
LOC: ED 22:52 → ED-I 02-03 00:05 → ED 02-03 00:39 → MS2 02-03 00:40
PROVIDERS: Emergency Medicine; ADMIT Internal Medicine Nephrology; ATTEND Internal Medicine Nephrology
DX: J18.9 Pneumonia, unspecified organism (principal); J43.9 Emphysema, unspecified; J47.0 Bronchiectasis with acute lower respiratory infection; N17.9 Acute kidney failure, unspecified; I12.9 Hypertensive chronic kidney disease with stage 1 through stage 4 chronic kidney disease, or unspecified chronic kidney disease; E11.22 Type 2 diabetes mellitus with diabetic chronic kidney disease; N18.3 Chronic kidney disease, stage 3 (moderate); I48.2 Chronic atrial fibrillation; K21.9 Gastro-esophageal reflux disease without esophagitis; Z23 Encounter for immunization; Z85.46 Personal history of malignant neoplasm of prostate; Z79.01 Long term (current) use of anticoagulants; Z87.891 Personal history of nicotine dependence
CPT/HCPCS: G0378